=== PATIENT | male | born 1960 | race Caucasian/White ===

== ENCOUNTER → 2021-09-06 12:10 | Outpatient (CLI) | payer OTHER, SELFPAY ==
--- NOTE | 2021-09-06 | DI.MRI.S_ITS ---
PROCEDURE: MR SHOULDER RT WO CON INDICATIONS: Rotator cuff injury right shoulder TECHNIQUE: Noncontrast oblique coronal T2 fast spin echo with fat saturation, oblique sagittal T1 spin echo and T2 fast spin echo with fat saturation, axial T1 spin echo and T2 fast spin echo with fat saturation through the shoulder. COMPARISON: None. FINDINGS: Image quality: Excellent. Rotator cuff: There is full-thickness tearing of the anterior, mid, and posterior supraspinatus tendon with medial retraction and atrophy of the supraspinatus. Full-thickness tearing of the mid and anterior infraspinatus tendon is present with medial retraction and atrophy. Moderate to high-grade tearing of the posterior infraspinatus tendon at the humeral insertion site extending to the musculotendinous junction. Teres minor is intact. Low-grade partial-thickness articular surface tearing of the mid and inferior subscapularis tendon at the humeral insertion site extending the musculotendinous junction. Bones and bursae: No bone marrow contusions or fractures. Moderate acromioclavicular joint degeneration. The acromion demonstrates conventional anatomy, without an os acromiale. No pathologic subacromial-subdeltoid or subcoracoid bursal fluid is present. Capsule and soft tissues: Diffuse degenerative fraying of the glenoid labrum. The long head of the biceps tendon demonstrates normal location and morphology. The rotator interval appears normal, without fibrosis. The coracohumeral ligament is normal in thickness. IMPRESSION: 1. Full-thickness tearing of the entire supraspinatus, and most of the infraspinatus tendons. Moderate to high-grade partial-thickness tearing of the posterior infraspinatus. 2. Low-grade tearing of the subscapularis. 3. Diffuse degenerative fraying of the glenoid labrum. 4. Acromioclavicular joint osteoarthritis. Dictated by: Geena Valdes M.D. on 09/06/2021 at 14:57 Approved by: Geena Valdes M.D. on 09/06/2021 at 14:58
== END ==
PROVIDERS: PCP Family Medicine; Referring Provider Family Medicine; Visit Provider Family Medicine
DX: S46.011A Strain of muscle(s) and tendon(s) of the rotator cuff of right shoulder, initial encounter (principal); M19.011 Primary osteoarthritis, right shoulder; X58.XXXA Exposure to other specified factors, initial encounter
CPT/HCPCS: 73221

== ENCOUNTER → 2022-01-04 09:01 | Outpatient (CLI) | payer OTHER, SELFPAY ==
[2022-01-04 21:33] LABS: COVID19 - ORCAS (NP or Nasal) Negative (Negative)
== END ==
PROVIDERS: PCP Family Medicine; Visit Provider Physician Assistant
DX: Z20.822 Contact with and (suspected) exposure to COVID-19 (principal)
CPT/HCPCS: U0003

== ENCOUNTER → 2025-07-15 14:41 | Outpatient (CLI) | payer OTHER, SELFPAY ==
--- NOTE | 2025-07-15 14:49 | DI.MRI.S_ITS ---
PROCEDURE: MR LUMBAR SPINE WO CON INDICATIONS: left lumbar radiculopathy TECHNIQUE: Noncontrast sagittal T1 spin echo and T2 fast echo, sagittal STIR, and T2 fast spin echo through the lumbar spine. In cases with scoliosis, additional coronal T2 fast spin echo may be performed. COMPARISON: None. FINDINGS: Image quality: Diagnostic Alignment and Curvature: Trace anterolisthesis of L3 on L4 and L2 on L3. Trace retrolisthesis of L4 on L5 Bone Marrow: No acute fracture related edema. Multilevel disc desiccation and height loss. Spinal Cord: Cord terminates in expected position. There is clumping of the cauda equina nerve roots due to thecal sac stenosis at multiple levels. Paraspinous Soft Tissues: Suspect left mid posterior renal cysts. No abdominal aortic aneurysm. T12-L1: Mild diffuse disc bulge. Mild facet arthropathy. Mild central narrowing. Mild left neural foraminal narrowing. L1-L2: [id number] diffuse disc bulge and facet arthropathy. Moderate central narrowing. Ligamentum hypertrophy. There is either a dural lesion, nerve root lesion, or extruded disc material in the neural foramen in the left neural foramen (5/, 2/). Moderate background left foraminal narrowing and [id number] right neural foraminal narrowing. L2-L3: Disc uncovering and diffuse disc bulge. Moderate to severe facet arthropathy. Ligamentum hypertrophy. Severe central narrowing affecting both subarticular recesses. Moderate left and [id number] right neural foraminal narrowing. L3-L4: Diffuse moderate disc bulge and moderate to severe facet arthropathy. Ligamentum hypertrophy. Severe central narrowing. Moderate to severe left and moderate right neural foraminal narrowing. L4-L5: Moderate diffuse disc bulge and facet arthropathy. Moderate central narrowing affecting both subarticular recesses. Severe left and moderate to severe right neural foraminal narrowing. L5-S1: Moderate facet arthropathy. Mild diffuse disc bulge. No stenosis at this level IMPRESSION: Advanced spondylotic changes as described above, with severe thecal sac stenoses at L2-L3 and L3-L4. Moderate to severe spondylosis also seen at L1-L2 and L4-L5. There is possible dural lesion, nerve root lesion, or extruded disc material within the left L1-L2 neural foramen. A contrast enhanced MRI could clarify. This study was marked in PACS for communication. Dictated by: Gian Zepeda M.D. on 07/16/2025 at 0:41 Approved by: Gian Zepeda M.D. on 07/16/2025 at 0:50
== END ==
PROVIDERS: PCP Family Medicine; Referring Provider Family Medicine; Visit Provider Family Medicine
DX: M47.26 Other spondylosis with radiculopathy, lumbar region (principal); M47.27 Other spondylosis with radiculopathy, lumbosacral region
CPT/HCPCS: 72148